=== PATIENT | male | born 1985 | race African-American/Black ===

== ENCOUNTER 2019-08-15 16:20 | Emergency (ER) | payer SELFPAY ==
[2019-08-15] MEDS ORDERED: Ondansetron ODT 8 MG TAB ONE (17:31)
[2019-08-15] MEDS ORDERED: Dicyclomine 20 MG TAB ONE (17:31)
== END 2019-08-15 17:40 | disposition home or self-care (01) ==
LOC: ERS 16:20
DX: R51 Headache (principal); R10.9 Unspecified abdominal pain
CPT/HCPCS: 99283